=== PATIENT | male | born 1945 | race Caucasian/White ===

== ENCOUNTER → 2017-10-02 11:58 | Outpatient (CLI) | payer OTHER, SELFPAY ==
--- NOTE | 2017-10-02 | DI.RAD.S_ITS ---
PROCEDURE: XR KNEE LT 3V INDICATIONS: LEFT KNEE PAIN TECHNIQUE: 3 views of the knee were acquired. COMPARISON: None. FINDINGS: Bones: No fractures or dislocations. No suspicious bony lesions. There are small tricompartmental osteophytes. Soft tissues: No joint effusion. No suspicious soft tissue calcifications. There are scattered soft tissue vascular calcifications. IMPRESSION: Degenerative change No acute radiographic findings. If pain persists, repeat study in 5-7 days is recommended to exclude occult fracture. Dictated by: Kathi Samuel M.D. on 10/02/2017 at 15:31 Approved by: Kathi Samuel M.D. on 10/02/2017 at 15:31
== END ==
PROVIDERS: Visit Provider Family Medicine
DX: M25.562 Pain in left knee (principal); M17.12 Unilateral primary osteoarthritis, left knee
CPT/HCPCS: 73562